=== PATIENT | male | born 1980 | race Caucasian/White ===

== ENCOUNTER 2016-07-30 23:21 | Emergency (ER) | payer BC ==
[2016-07-30 23:32] VITALS: RESP 20
[2016-07-30] MEDS ORDERED: IBUPROFEN 800 MG TAB PO STA (23:38)
[2016-07-30] MEDS ORDERED: IPRATROPIUM-ALBUTEROL 3 ML NEB INHALATION STA (23:46)
--- NOTE | 2016-07-31 00:56 | XR ---
EXAM: XR Chest, 2 Views. CLINICAL HISTORY: Reason: Pain TECHNIQUE: Frontal and lateral views of the chest. COMPARISON: No relevant prior studies available. FINDINGS: Lungs: Low lung volume accentuates pulmonary lung markings. Slight increased streaky density in the left lower lobe. Pleural space: No pleural effusion. Heart: Unremarkable. No cardiomegaly. Mediastinum: Unremarkable. Bones/joints: Unremarkable. IMPRESSION: Low lung volume. Developing atelectasis versus infiltrate in the left lower lobe. Recommend follow-up
--- NOTE | 2016-07-31 01:03 | ED ---
Fever HPI - General Chief Complaint: Fever Stated Complaint: Fever Time Seen by Provider: 07/30/16 23:37 Source: patient, RN notes reviewed, old records reviewed Mode of arrival: ambulatory Limitations: no limitations - History of Present Illness Initial Comments: Lakesha is a 36 year old male with chief complaint of fever, cough, and body aches for 3 days. Patient states son had similiar symptoms 1 week ago, but was never treated and is better at this time. Patient denies receiving flu vaccine. Paitent states he took tylenol 1 hour prior to arrival. He sttes when he coughs he becomes short of breath. Patient denies ay vomiting, abodminal pain, nausea, dysuria, diarrhea. - Related Data Previous Rx's Medication Instructions Recorded Albuterol Inhaler [Ventolin Hfa 1 - 2 puff INHALATION Q6HR PRN #1 07/31/16 Inhaler] inhaler Benzonatate [Tessalon Perles] 100 mg PO TID PRN #20 capsule 07/31/16 Oseltamivir [Tamiflu] 75 mg PO Q12HR #10 cap 07/31/16 Allergies Allergy/AdvReac Type Severity Reaction Status Date / Time No Known Allergies Allergy Verified 07/30/16 23:32 Review of Systems ROS Statement: Those systems with pertinent positive or pertinent negative responses have been documented in the HPI. ROS Other: All systems not noted in ROS Statement are negative. Past Medical History Past Medical History: No Reported History History of Any Multi-Drug Resistant Organisms: None Reported Past Surgical History: No Surgical Hx Reported Past Psychological History: No Psychological Hx Reported Smoking Status: Never smoker Past Alcohol Use History: None Reported Past Drug Use History: None Reported General Exam - General Exam Comments Initial Comments: Well appearing 36 year old male, no distress. Limitations: no limitations General appearance: alert, in no apparent distress Head exam: Present: atraumatic, normocephalic, normal inspection Eye exam: Present: normal appearance, PERRL, EOMI. Absent: scleral icterus, conjunctival injection, periorbital swelling ENT exam: Present: normal exam, mucous membranes moist Neck exam: Present: normal inspection. Absent: tenderness, meningismus, lymphadenopathy Respiratory exam: Present: normal lung sounds bilaterally. Absent: respiratory distress, wheezes, rales, rhonchi, stridor Cardiovascular Exam: Present: regular rate, normal rhythm, normal heart sounds. Absent: systolic murmur, diastolic murmur, rubs, gallop, clicks GI/Abdominal exam: Present: soft, normal bowel sounds. Absent: distended, tenderness, guarding, rebound, rigid Extremities exam: Present: normal inspection, full ROM, normal capillary refill. Absent: tenderness, pedal edema, joint swelling, calf tenderness Back exam: Present: normal inspection Neurological exam: Present: alert, oriented X3, CN II-XII intact Psychiatric exam: Present: normal affect, normal mood Skin exam: Present: warm, dry, intact, normal color. Absent: rash Course Vital Signs 07/30/16 07/30/16 07/31/16 23:30 23:57 00:12 Temperature 100.8 F H Pulse Rate 125 H 120 H 120 H Respiratory 20 Rate Blood Pressure 120/80 O2 Sat by Pulse 98 Oximetry 07/31/16 01:13 Temperature 97.5 F L Pulse Rate 100 Respiratory 20 Rate Blood Pressure 130/77 O2 Sat by Pulse 100 Oximetry Medical Decision Making - Medical Decision Making Ptient is a 36 year old male with chief complaint of fever, cough, and body aches for 3 days. Patient states son had similiar symptoms 1 week ago, but was never treated and is better at this time. Patient denies receiving flu vaccine. Patient arrives with fever of 100.8. Patient given Motrin, and breathing treatment for cough in EC. Patient CXR is negative. Patient tests positive for influenza B. Patient will be discharged with tamiflu, tessalon perles and albuterol inhaler. patient understands treatment plan and will comply. - Lab Data Lab Results 07/30/16 Range/Units 23:57 Influenza Type A RNA Not Detected (Not Detectd) Influenza Type B (PCR) Detected H (Not Detectd) Disposition Clinical Impression: Influenza B Disposition: HOME SELF-CARE Condition: Good Instructions: Fever in Adults (ED), Influenza (ED) Additional Instructions: Rest, increase fluids and take prescriptions as directed. Follow-up with primary care provider if symptoms continue persist. Return to the emergency department if any alarming signs or symptoms occur. Prescriptions: Albuterol Inhaler [Ventolin Hfa Inhaler] 1 - 2 puff INHALATION Q6HR PRN #1 inhaler PRN Reason: Shortness Of Breath Benzonatate [Tessalon Perles] 100 mg PO TID PRN #20 capsule PRN Reason: Cough Oseltamivir [Tamiflu] 75 mg PO Q12HR #10 cap Referrals: None,Stated [Primary Care Provider] - 1-2 days Time of Disposition: 00:59
[2016-07-31 01:13] VITALS: BP 130/77; PULSE 100; TEMP 97.5
== END 2016-07-31 01:13 | disposition home or self-care (01) ==
LOC: EC 23:21
DX: J10.1 Influenza due to other identified influenza virus with other respiratory manifestations (principal)
CPT/HCPCS: 71020; 87502; 94640; 99284